=== PATIENT | female | born 1980 | race Caucasian/White ===

== ENCOUNTER 2018-01-22 15:49 | Emergency (ER) | payer MEDICAID, OTHER, SELFPAY ==
[~2018-01-22] VITALS: Ht 170.2 cm; Wt 93.0 kg
[2018-01-22 15:58] VITALS: BP 124/82
== END 2018-01-22 18:44 | disposition home or self-care (01) ==
LOC: ED 18:30
DX: S52.502A Unspecified fracture of the lower end of left radius, initial encounter for closed fracture (principal); X58.XXXA Exposure to other specified factors, initial encounter; Y93.89 Activity, other specified; Y92.89 Other specified places as the place of occurrence of the external cause; Y99.8 Other external cause status
CPT/HCPCS: 29125; 99284